=== PATIENT | male | born 1950 | race Caucasian/White ===

== ENCOUNTER → 2021-12-28 | Outpatient (CLI) | payer OTHER | END | disposition home or self-care (01) | LOC: SHCH 07:37 | PROVIDERS: ATTEND Internal Medicine Cardiovascular Disease | DX: E27.1 Primary adrenocortical insufficiency (principal) | CPT/HCPCS: 93978 ==

== ENCOUNTER 2023-07-22 14:05 | Observation (INO) | payer OTHER ==
[~2023-07-22] VITALS: Ht 177.8 cm; Wt 76.7 kg
[2023-07-22 15:23] LABS: BASOPHILS # (AUTO) 0.04 K/uL (0.00-0.20); BASOPHILS % (AUTO) 0.6 % (0.0-5.0); EOSINOPHILS # (AUTO) 0.02 K/uL (0.00-0.70); EOSINOPHILS % (AUTO) 0.3 % (0.0-8.0); HEMATOCRIT 41.1 % (42-54); IMMATURE GRANULOCYTE ABSOLUTE 0.02 K/uL (0-1); LYMPHOCYTES # (AUTO) 1.3 K/uL (1.0-4.8); LYMPHOCYTES % (AUTO) 19.7 % (21.0-51.0); MEAN CORPUSCULAR HEMOGLOBIN 29.7 pg (27.0-33.0); MEAN CORPUSCULAR HGB CONC 33.8 g/dL (32.0-36.0); MEAN CORPUSCULAR VOLUME 87.8 fL (79-99); MONOCYTES # (AUTO) 0.9 K/uL (0.1-1.0); MONOCYTES % (AUTO) 13.8 % (3.0-13.0); NEUTROPHILS # (AUTO) 4.4 K/uL (1.8-7.7); NEUTROPHILS % (AUTO) 65.3 % (40.0-77.0); PLATELET COUNT (AUTO) 137 K/uL (130-400); RED BLOOD CELL COUNT(AUTO) 4.68 MIL/uL (4.50-6.20); WHITE BLOOD COUNT (AUTO) 6.8 K/uL (4.8-10.8)
[2023-07-22 15:33] LABS: CREATININE 1.1 mg/dL (0.5-1.5)
[2023-07-22 15:38] LABS: ALBUMIN 3.5 g/dL (3.5-5.0); BILIRUBIN,TOTAL 0.8 mg/dL (0.2-1.0); TOTAL PROTEIN, SERUM 6.5 g/dL (6.0-8.3)
[2023-07-22 16:00] LABS: SARS-CoV-2, RNA, NAAT POSITIVE SARS CoV-2 (NEGATIVE)
[2023-07-22 17:25] LABS: ADD UA MICROSCOPIC NO; APPEARANCE,URINE CLEAR (CLEAR); BILIRUBIN,URINE NEGATIVE (NEGATIVE); COLOR,URINE LIGHT-YELLOW (YELLOW); GLUCOSE, URINE (UA) NEGATIVE (NEGATIVE); KETONES,URINE NEGATIVE (NEGATIVE); LEUKOCYTE ESTERASE ,URINE NEGATIVE Leu/uL (NEGATIVE); NITRATE,URINE NEGATIVE (NEGATIVE); OCCULT BLOOD,URINE NEGATIVE (NEGATIVE); PROTEIN,URINE NEGATIVE (NEGATIVE); UROBILINOGEN,URINE 0.2 mg/dL (0.2-1.0)
[2023-07-22] MEDS ORDERED: HYDROCORTISONE SOD SUCCINATE 100 MG/2 ML VIAL IV SCH (19:30)
[2023-07-22] MEDS ORDERED: ONDANSETRON 4MG INJ IVP PRN (21:00)
[2023-07-22] MEDS ORDERED: TEMAZEPAM 15 MG CAPSULE PO PRN (21:00)
[2023-07-22] MEDS ORDERED: ACETAMINOPHEN 325 MG TAB PO PRN (21:00)
[2023-07-22] MEDS ORDERED: ACETAMINOPHEN 650 MG SUPPOSITORY RC PRN (21:00)
[2023-07-22] MEDS ORDERED: LACTULOSE 20 GM/30 ML UDCUP PO PRN (21:00)
[2023-07-22] MEDS: INSULIN HUMULIN R 100 UNIT/ML 3ML SQ SCH (21:00)
[2023-07-22] MEDS ORDERED: CLONIDINE HCL 0.1 MG TABLET PO PRN (21:00)
[2023-07-22] MEDS ORDERED: DOCUSATE SODIUM 100 MG CAP PO PRN (21:00)
[2023-07-22] MEDS ORDERED: LABETALOL 20MG SYG IV PRN (21:00)
[2023-07-22] MEDS ORDERED: HYDRALAZINE 20MG/ML VIAL IV PRN (21:00)
[2023-07-22 23:55] LABS: ABG BASE EXCESS -1.5 mmol/L (-2.0-3.0); ABG HCO3 22.2 mmol/L (21.0-28.0); ABG OXYGEN SATURATION 95.2 % (95.0-99.0); ABG PCO2 35 mmHg (35-48); ABG PH 7.424 (7.35-7.450); CARBON MONOXIDE 0.6; DEVICE COMMENT LR; HHb 4.8; PO2, ARTERIAL BG 75.5 mmHg (83.0-108.0); VENT MODE, BG RA (ROOM AIR)
[2023-07-23] VITALS (11 sets, daily range): BP systolic 103–156; BP diastolic 56–95; PULSE 59–102; RESP 18–20; O2SAT 95–98
[2023-07-23] MEDS ORDERED: HYDR5TAB14 PO (04:57)
[2023-07-23] MEDS ORDERED: UBID1CAP56 PO (04:57)
[2023-07-23] MEDS ORDERED: ATOR40TA69 PO (04:57)
[2023-07-23] MEDS ORDERED: HYDR20TA24 PO (04:57)
[2023-07-23] MEDS ORDERED: ASCO500T19 PO (05:16)
[2023-07-23] MEDS ORDERED: AEC81 PO (05:16)
[2023-07-23] MEDS ORDERED: LEVO75CA5 PO (05:16)
[2023-07-23] MEDS ORDERED: FLUD0.1T2 PO (05:16)
[2023-07-23] MEDS ORDERED: BENZ-226 PO (05:16)
[2023-07-23 05:37] LABS: BASOPHILS # (AUTO) 0.01 K/uL (0.00-0.20); BASOPHILS % (AUTO) 0.2 % (0.0-5.0); HEMATOCRIT 42.7 % (42-54); IMMATURE GRANULOCYTE ABSOLUTE 0.02 K/uL (0-1); LYMPHOCYTES # (AUTO) 0.8 K/uL (1.0-4.8); LYMPHOCYTES % (AUTO) 13.1 % (21.0-51.0); MEAN CORPUSCULAR HEMOGLOBIN 29.8 pg (27.0-33.0); MEAN CORPUSCULAR HGB CONC 34.2 g/dL (32.0-36.0); MEAN CORPUSCULAR VOLUME 87.1 fL (79-99); MONOCYTES # (AUTO) 0.5 K/uL (0.1-1.0); MONOCYTES % (AUTO) 7.4 % (3.0-13.0); NEUTROPHILS # (AUTO) 4.9 K/uL (1.8-7.7); PLATELET COUNT (AUTO) 147 K/uL (130-400); RED CELL DISTRIBUTION WIDTH 13.1 % (11.0-15.5); WHITE BLOOD COUNT (AUTO) 6.3 K/uL (4.8-10.8)
[2023-07-23 05:57] LABS: PHOSPHORUS 4.9 mg/dL (2.5-4.9); POTASSIUM 4.6 mmol/L (3.5-5.1)
[2023-07-23] MEDS: INSULIN HUMULIN R 100 UNIT/ML 3ML SQ SCH ×4 (06:52→20:25)
[2023-07-23] MEDS ORDERED: GLUCAGON 1MG KIT 1 MG ML IM PRN (08:00)
[2023-07-23] MEDS ORDERED: POTASSIUM CHLORIDE 10% ELIXIR 20 MEQ/15 ML UDCUP PO PRN (08:00)
[2023-07-23] MEDS ORDERED: DEXTROSE 50%-WATER 50 ML DISP.SYRIN IV PRN (08:00)
[2023-07-23] MEDS ORDERED: MAGNESIUM 2GM PREMIX 50ML 50 ML IV PRN (08:00)
[2023-07-23] MEDS ORDERED: BENZONATATE 100 MG CAPSULE PO PRN (08:00)
[2023-07-23] MEDS ORDERED: POTASSIUM CHLORIDE 20MEQ/100ML 100 ML IV PRN (08:00)
[2023-07-23] MEDS ORDERED: KCL 20 MEQ ERTAB PO PRN (08:00)
[2023-07-23] MEDS ORDERED: [UNRECOGNIZED DRUG - OTHER] PO SCH (09:00)
[2023-07-23] MEDS ORDERED: HYDROCORTISONE 20 MG TABLET PO SCH (09:00)
[2023-07-23] MEDS ORDERED: ASCORBIC ACID PO SCH (09:00)
[2023-07-23] MEDS ORDERED: UBIDECARENONE PO SCH (09:00)
[2023-07-23] MEDS ORDERED: VIT E ACETATE PO SCH (09:00)
[2023-07-23] MEDS ORDERED: FLUDROCORTISONE ACETATE 0.1 MG TABLET PO SCH (09:00)
[2023-07-23] MEDS ORDERED: ASCORBATE SODIUM PO SCH (09:00)
[2023-07-23] MEDS ORDERED: [UNRECOGNIZED DRUG - OTHER] PO SCH (09:00)
[2023-07-23] MEDS: ASPIRIN 81 MG EC TAB PO SCH (09:29)
[2023-07-23] MEDS: CALCIUM CARB 500MG CHEW TAB PO SCH (09:29)
[2023-07-23] MEDS ORDERED: HYDROCORTISONE SOD SUCCINATE 100 MG/2 ML VIAL IM SCH (12:00)
[2023-07-23] MEDS: HYDROCORTISONE SOD SUCCINATE 100 MG/2 ML VIAL IVP SCH ×2 (18:48→23:56)
[2023-07-23] MEDS ORDERED: PHARMACY COMMUNICATION MISC SCH (19:30)
[2023-07-23] MEDS: ATORVASTATIN 40 MG TABLET PO SCH ×3 (20:23→21:56)
[2023-07-23] MEDS: PAXLOVID PO SCH (20:24)
[2023-07-24] VITALS: BP 138/87; PULSE 101; RESP 20
[2023-07-24 03:36] VITALS: BP 105/67; PULSE 68; RESP 18
[2023-07-24 04:37] LABS: CREATININE 0.9 mg/dL (0.5-1.5); POTASSIUM 4.5 mmol/L (3.5-5.1)
[2023-07-24] MEDS: HYDROCORTISONE SOD SUCCINATE 100 MG/2 ML VIAL IVP SCH ×2 (05:15→11:30)
[2023-07-24] MEDS: INSULIN HUMULIN R 100 UNIT/ML 3ML SQ SCH ×2 (06:01→11:10)
[2023-07-24] MEDS ORDERED: LEVOTHYROXINE 75 MCG TABLET PO SCH (06:30)
[2023-07-24] MEDS ORDERED: NON-FORMULARY MEDICATION 1 EACH (Levothyroxine Sodium (Levothyroxine) 75 MCG) PO SCH (07:30)
[2023-07-24 08:00] VITALS: O2SAT 96
[2023-07-24 08:16] VITALS: BP 107/68; PULSE 60; RESP 20
[2023-07-24] MEDS: ASPIRIN 81 MG EC TAB PO SCH (08:22)
[2023-07-24] MEDS: CALCIUM CARB 500MG CHEW TAB PO SCH (08:23)
[2023-07-24] MEDS: PAXLOVID PO SCH (08:30)
[2023-07-24] MEDS ORDERED: HYDROCORTISONE 20 MG TABLET PO SCH (09:00)
[2023-07-24] MEDS ORDERED: PANTOPRAZOLE 40 MG TAB DR PO SCH (09:00)
[2023-07-24] MEDS ORDERED: ENOXAPARIN SODIUM 40 MG/0.4 ML SYRINGE SQ SCH (09:00)
[2023-07-24 12:11] VITALS: BP 123/69; PULSE 61; RESP 20
== END 2023-07-24 13:04 | disposition home or self-care (01) ==
LOC: EDH 14:05 → EDHIP 20:37 → 2AH 07-23 04:20
PROVIDERS: ADMIT Internal Medicine; ATTEND Internal Medicine
DX: U07.1 COVID-19 (principal); R55 Syncope and collapse; E27.40 Unspecified adrenocortical insufficiency; E03.9 Hypothyroidism, unspecified; E78.5 Hyperlipidemia, unspecified; E87.6 Hypokalemia; E27.1 Primary adrenocortical insufficiency; E78.00 Pure hypercholesterolemia, unspecified; E83.51 Hypocalcemia; E87.1 Hypo-osmolality and hyponatremia; I51.7 Cardiomegaly; R09.02 Hypoxemia; Z91.199 Patient's noncompliance with other medical treatment and regimen due to unspecified reason; Z95.0 Presence of cardiac pacemaker; Z79.899 Other long term (current) drug therapy; Z98.890 Other specified postprocedural states
CPT/HCPCS: 82947; 84132; 84295; 85018; 82948 ×6; 82435; 96374; 99285; 84484; 80053; 82803; 85025 ×2; 83605 ×2; 81003; 36415 ×3; 87635; 71045; 70450; 93005; 96376 ×2; 96372 ×2; 83735; 84100; 80048 ×2; 93880; 97161; 97116; 97530 ×2; 36600; 82533; G0378 ×39; C9803; J1720 ×6; J1650

== ENCOUNTER 2024-10-04 19:11 | Emergency (ER) | payer OTHER ==
[~2024-10-04] VITALS: Ht 177.8 cm; Wt 78.9 kg
[~2024-10-04 19:11] MED LIST: AEC81 PO; ASCO500T19 PO; ATOR40TA69 PO; BENZ-226 PO; FLUD0.1T2 PO; HYDR20TA24 PO; HYDR5TAB14 PO; LEVO75CA5 PO; UBID1CAP56 PO
--- NOTE | 2024-10-04 19:21 | ERN ---
ED Note History of Present Illness Stated Complaint: FALL, COUGH Chief Complaint: Mechanical Fall Time Seen by MD: 19:16 Dictation: PATIENT IS A 74-YEAR-OLD MALE COMING IN TODAY WITH COMPLAINTS OF HAVING A NEAR SYNCOPAL EPISODE AND TAKEN HIMSELF DOWN TO THE FLOOR. 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 HE SAID HE LAID DOWN ON THE GROUND AND CALLED EMS. HE DENIES ANY FALLS, NO LOC NO HEAD INJURY NO BLOOD THINNERS. HEART RATE IS CONTROLLED AT . PATIENT IS NOTED TO BE 101 ON EXAM. Allergies: Coded Allergies: No Known Allergies (Unverified Allergy, Unknown, 07/22/23) Home Meds Reported Medications Levothyroxine Sodium (Levothyroxine) 75 Mcg Capsule, 75 MCG PO ACBKFST, CAP 07/23/23 Ascorbic Acid/Ascorbate Sodium (Vitamin C 500 mg Tablet Chew) 500 Mg Tab.chew, 500 MG PO DAILY, TAB.CHEW 07/23/23 Aspirin (ASPIRIN 81 MG ECTAB) 81 Mg Ectab, 81 MG PO DAILY, TAB.EC 07/23/23 Fludrocortisone Acetate (Fludrocortisone Acetate) 0.1 Mg Tablet, 0.1 MG PO QODAY, TAB 07/23/23 Benzonatate (Benzonatate) 100 Mg Capsule, 100 MG PO TIDP PRN for COUGH/COLD SYMPTOMS, CAP 07/23/23 Atorvastatin Calcium (LIPITOR) 80 Mg Tablet, 80 MG PO HS, TAB 07/23/23 Hydrocortisone (Hydrocortisone) 20 Mg Tablet, 20 MG PO DAILY, TAB 07/23/23 Hydrocortisone (Hydrocortisone) 5 Mg Tablet, 5 MG PO DAILYDINNER, TAB 07/23/23 Ubidecarenone/Vit E Acetate (Co Q-10 100 mg Softgel) 100 Mg-5 Unit Capsule, 1 EACH PO DAILY, CAP 07/23/23 Past Medical History Past Medical History: High Cholesterol, Heart Disease, Other (LUKE'S DISEASE) Surgical History: Other Surgical History Other: ABD HERNIA, BOWEL RESECTION Social History: Lives with family RN Note Reviewed/Agreed w/PFSH: Yes Review of System Dictation CONSTITUTIONAL: NEGATIVE EXCEPT FOR HPI GENERALIZED WEAKNESS/FEVER HEAD/FACE: NEGATIVE EXCEPT FOR HPI EENT: NEGATIVE EXCEPT FOR HPI RESPIRATORY: NEGATIVE EXCEPT FOR HPI COUGH GASTROINTESTINAL/ABDOMINAL: NEGATIVE EXCEPT FOR HPI GENITOURINARY: NEGATIVE EXCEPT FOR HPI MUSCULOSKELETAL: NEGATIVE EXCEPT FOR HPI INTEGUMENTARY: NEGATIVE EXCEPT FOR HPI NEUROLOGICAL/PSYCH: NEGATIVE EXCEPT FOR HPI HEMATOLOGIC/LYMPHATIC: NEGATIVE EXCEPT FOR HPI ALL SYSTEMS NEGATIVE, EXCEPT NOTED ABOVE. 13 POINT REVIEW OF SYSTEMS ASSESSED AND ALL NEGATIVE EXCEPT FOR ABOVE. Initial Vital Sign VS Vital Signs Date Time Temp Pulse Resp B/P (MAP) Pulse Ox O2 Delivery O2 Flow Rate FiO2 10/04/24 19:12 100.9 73 16 110/66 99 Room Air 0 Physical Exam Dictation VITAL SIGNS REVIEWED SEE YOUR OVER 10 PAIN GENERAL APPEARANCE: ALERT, ORIENTED X 3, NO ACUTE DISTRESS, WELL DEVELOPED, NOURISHED. HEAD AND FACE: NON-TRAUMATIC. EYES: PERRL, PINK CONJUNCTIVAS, EYELID NO TRAUMA, ANTERIOR CHAMBER WITH ARCUS SENILIS. EARS: PINNAS INTACT AND NO SIGNS OF TRAUMA OR ERYTHEMA EAR CANALS CLEAR AND NO DISCHARGE TM NO ERYTHEMA NOSE: NO DISCHARGE, NO BLEEDING. OROPHARYNX: MOUTH NORMAL, TONGUE PINK, PHARYNX CLEAR,NO ERYTHEMA, TONSILS NO EXUDATES, NO ABSCESSES NOTED, MUCOUS MEMBRANE MOIST NECK: SUPPLE, NON-TENDER, NO THYROMEGALY, NO MASSES, NO JVD, NO BRUITS BREAST:DEFERRED CHEST:NO TENDERNESS, NO CREPITUS, NO PARADOXICAL MOVEMENT, NO RETRACTIONS LUNGS:CLEAR, WELL-VENTILATED, SYMMETRIC, NO RALES, NO WHEEZING, NO RHONCHI, NO STRIDOR, GOOD BREATH SOUNDS BILATERALLY HEART: REGULAR RATE, REGULAR RHYTHM, NO MURMUR, NO GALLOPS VASCULAR: NO PERIPHERAL EDEMA, ABDOMEN: SOFT, POSITIVE BOWEL SOUNDS, NONDISTENDED, NO GUARDING, NONTENDER, NO REBOUND, NO MASSES NO HEPATOMEGALY, NO SPLENOMEGALY, NO BEATTY'S SIGN, NO HERNIAS. RECTAL: DEFERRED GENITAL: DEFERRED NEUROLOGICAL: NORMAL SPEECH, MOTOR FUNCTION INTACT, SENSORY FUNCTION INTACT MUSCULOSKELETAL: NECK NONTENDER, FULL RANGE OF MOTION, BACK NONTENDER, FULL RANGE OF MOTION, EXTREMITIES: NONTENDER, FULL RANGE OF MOTION SKIN: COLOR PINK, DRY, NO TURGOR, NO RASH, NO LACERATIONS, NO ABRASIONS, NO CONTUSIONS. LYMPHATIC: DEFERRED Results (Laboratory/Radiology) Laboratory/Radiology Laboratory Tests Test 10/04/24 19:27 10/04/24 20:32 White Blood Count 8.2 K/uL (4.8-10.8) Red Blood Count 4.74 MIL/uL (4.50-6.20) Hemoglobin 13.5 g/dL (14.0-18.0) L Hematocrit 40.1 % (42-54) L Mean Corpuscular Volume 84.6 fL (79-99) Mean Corpuscular Hemoglobin 28.5 pg (27.0-33.0) Mean Corpuscular Hemoglobin Concent 33.7 g/dL (32.0-36.0) Red Cell Distribution Width 14.8 % (11.0-15.5) Platelet Count 129 K/uL (130-400) L Mean Platelet Volume 9.4 fL (7.5-10.5) Immature Granulocyte % (Auto) 0.2 % (0-1) Neutrophils (%) (Auto) 65.4 % (40.0-77.0) Lymphocytes (%) (Auto) 20.6 % (21.0-51.0) L Monocytes (%) (Auto) 11.5 % (3.0-13.0) Eosinophils (%) (Auto) 1.5 % (0.0-8.0) Basophils (%) (Auto) 0.8 % (0.0-5.0) Neutrophils # (Auto) 5.4 K/uL (1.8-7.7) Lymphocytes # (Auto) 1.7 K/uL (1.0-4.8) Monocytes # (Auto) 1.0 K/uL (0.1-1.0) Eosinophils # (Auto) 0.12 K/uL (0.00-0.70) Basophils # (Auto) 0.07 K/uL (0.00-0.20) Absolute Immature Granulocyte (auto 0.02 K/uL (0-1) Nucleated Red Blood Cells 0.0 % (0.0-0.19) Sodium Level 131 mmol/L (136-145) L Potassium Level 4.6 mmol/L (3.5-5.1) Chloride Level 95 mmol/L (101-111) L Carbon Dioxide Level 34 mmol/L (21-32) H Blood Urea Nitrogen 14 mg/dL (7-18) Creatinine 1.0 mg/dL (0.5-1.3) Glomerular Filtration Rate Calc 78 mL/min (>90) Random Glucose 91 mg/dL (70-105) Lactic Acid Level 1.3 mmol/L (0.8-2.5) Total Calcium 8.9 mg/dL (8.5-10.1) SARS-CoV-2 Antigen (Rapid) POSITIVE FOR SARS AG Labs Reviewed?: Yes EKG Comment: EKG SINUS RHYTHM/HEART RATE 65/AXIS NORMAL/RIGHT BUNDLE BRANCH BLOCK ED Course ED Course Orders Procedure Category Date Status Time Covid19 (Sars Antigen LAB 10/04/24 Complete Rapid) 19:17 Cbc With Differential LAB 10/04/24 Complete 19:17 Blood Cult DENNY 10/04/24 In Process 19:17 Urinalysis Profile LAB 10/04/24 Logged 19:17 Lactic Acid LAB 10/04/24 Complete 19:17 Basic Metabolic Panel LAB 10/04/24 Complete 19:17 Acetaminophen 500mg PHA 10/04/24 Complete Tab (Tylenol 500mg T 19:30 Chest 1vw RAD 10/04/24 Resulted 19:17 0.9%Nacl 1000ml (Ns PHA 10/04/24 Complete 1000ml) 19:30 12 Lead Ekg Tracing- EKG 10/04/24 Complete Technical 19:31 Current Medications Medications (Trade) Dose Ordered Sig/Nate Route PRN Reason Start Time Stop Time Status Last Admin Dose Admin Acetaminophen (TYLenol 500MG TAB) 1,000 mg ONCE ONCE PO 10/04/24 19:30 10/04/24 19:31 DC 10/04/24 19:38 Sodium Chloride 1,000 ml @ 0 mls/hr ONCE ONCE IV 10/04/24 19:30 10/04/24 19:31 DC 10/04/24 19:38 Vital Signs Date Time Temp Pulse Resp B/P (MAP) Pulse Ox O2 Delivery O2 Flow Rate FiO2 10/04/24 19:12 100.9 73 16 110/66 99 Room Air 0 2120 PATIENT HAS COVID-19 INFECTION. THE REMAINDER OF HIS EXAM IS COMPLETELY UNREMARKABLE WE WILL BE DISCHARGE PATIENT HOME WITH VALERY TOLD TO SEE HIS DOCTOR. Medical Decision Making MDM MDM: DIFFERENTIAL DIAGNOSIS: /SYNCOPE/ELECTROLYTE IMBALANCE/DEHYDRATION/ARRHYTHMIA/TACHYCARDIC RATIONALE: TESTS CONSIDERED AND ORDERED SECONDARY TO SHARED DECISION MAKING INCLUDE: LABS/EKG PREVIOUS OUTSIDE RECORDS REVIEWED: OLD ER VISITS. RISK OF COMPLICATION AND/OR MORBIDITY OR MORTALITY OF PATIENT MANAGEMENT: NONE MEDICATIONS-PER MEDICATION RECONCILIATION NEED FOR HOSPITALIZATION: PATIENT DOES NOT MEET CRITERIA FOR HOSPITALIZATION. NO NEED FOR EMERGENCY MAJOR/MINOR SURGERY: NO THERE ARE NO SOCIAL CONCERNS WITH THIS PATIENT. PRESCRIPTION DRUG MANAGEMENT PAXLOVID PRESCRIPTIONS WILL INCLUDE SYMPTOMATIC CARE PATIENT'S PRIOR EXTERNAL MEDICAL RECORDS FROM OTHER ER VISITS WERE REVIEWED BY ME INDICATED. PRIOR TESTING AND RESULTS FROM PREVIOUS VISITS WERE REVIEWED. PRIOR TESTS WERE TAKEN INTO ACCOUNT WITH MEDICAL DECISION MAKING AND RESOURCE UTILIZATION, INDEPENDENT HISTORIAN/HISTORIANS WERE USED TO OBTAIN COMPLETE MEDICAL HISTORY. I INDEPENDENTLY INTERPRETED THE TEST THAT WERE PERFORMED, RESULTS WERE REVIEWED BY ME AND CONSIDERED FINDINGS ON RADIOLOGY IF ORDERED. MEDICAL MANAGEMENT AND EXAMINATION INTERPRETATION DISCUSSIONS WERE HAD BY ME WITH OTHER QUALIFIED HEALTHCARE PROFESSIONALS INDICATED FOR THE PATIENT'S CARE. DX & DISP Disposition: Discharge Departure Impression: Primary Impression: COVID-19 virus infection Additional Impression: Near syncope Condition: Stable Scripts Nirmatrelvir/Ritonavir (Paxlovid 300-100 mg Dose Pack) 300 Mg (150 Mg X 2)-100 Mg Tab.ds.pk 1 EACH PO AD for 5 Days, #30 TAB TAKE TABLETS TWICE A DAY DIRECTED UNTIL GONE. Prov: RONI CHRISTIANSON NP 10/04/24 Additional Instructions: FOLLOW-UP WITH PRIMARY CARE PROVIDER IN 1 TO 2 DAYS. TAKE MEDICATIONS DIRECTED HERE IN THE EMERGENCY ROOM. OKAY TO CONTINUE HOME MEDICATIONS UNLESS OTHERWISE DISCUSSED DURING YOUR VISIT IN THE EMERGENCY ROOM TODAY. RETURN TO YOUR NEAREST EMERGENCY ROOM IF SYMPTOMS WORSEN OR IF THERE IS NO IMPROVEMENT. CALL 911 IF YOU NEED IMMEDIATE ASSISTANCE. TAKE TYLENOL OR MOTRIN [id number] NEEDED AND IF NO CONTRAINDICATIONS ARE PRESENT. INCREASE ORAL HYDRATION. A WOUND CULTURE OR URINE CULTURE WAS ORDERED HERE IN THE EMERGENCY ROOM DEPARTMENT PLEASE FOLLOW-UP WITH PRIMARY CARE PROVIDER AND ADVISE THEM TO GET REPEAT PORTS FROM OUR FACILITY. IF YOU HAD ANY SHAYLA WRAP/SPLINTS THAT WERE APPLIED HERE, PLEASE DO NOT REMOVE THEM UNTIL YOU SEE YOUR PRIMARY CARE OR SPECIALTY. TAKE PAXLOVID DIRECTED UNTIL GONE. , INCREASE YOUR WATER INTAKE. SEE YOUR PRIMARY CARE DOCTOR FOR FOLLOW UP IN Referrals: BETTY BLACKBURN MD (PCP) Time of Disposition: 21:22 I have reviewed the case, and I agree with, Diagnosis and Plan RONI CHRISTIANSON NP Oct 04, 2024 19:20
[2024-10-04 19:35] LABS: BASOPHILS # (AUTO) 0.07 K/uL (0.00-0.20); BASOPHILS % (AUTO) 0.8 % (0.0-5.0); EOSINOPHILS # (AUTO) 0.12 K/uL (0.00-0.70); EOSINOPHILS % (AUTO) 1.5 % (0.0-8.0); HEMATOCRIT 40.1 % (42-54); IMMATURE GRANULOCYTE ABSOLUTE 0.02 K/uL (0-1); LYMPHOCYTES # (AUTO) 1.7 K/uL (1.0-4.8); LYMPHOCYTES % (AUTO) 20.6 % (21.0-51.0); MEAN CORPUSCULAR HEMOGLOBIN 28.5 pg (27.0-33.0); MEAN CORPUSCULAR HGB CONC 33.7 g/dL (32.0-36.0); MEAN CORPUSCULAR VOLUME 84.6 fL (79-99); MONOCYTES % (AUTO) 11.5 % (3.0-13.0); NEUTROPHILS # (AUTO) 5.4 K/uL (1.8-7.7); NEUTROPHILS % (AUTO) 65.4 % (40.0-77.0); PLATELET COUNT (AUTO) 129 K/uL (130-400); RED BLOOD CELL COUNT(AUTO) 4.74 MIL/uL (4.50-6.20); RED CELL DISTRIBUTION WIDTH 14.8 % (11.0-15.5); WHITE BLOOD COUNT (AUTO) 8.2 K/uL (4.8-10.8)
[2024-10-04] MEDS: acetaMINOPHEN 500 MG TABLET PO ONE (19:38)
[2024-10-04] MEDS: 0.9%NACL 1000ML 1,000 ML IV ONE (19:38)
[2024-10-04 19:53] LABS: POTASSIUM 4.6 mmol/L (3.5-5.1)
--- NOTE | 2024-10-04 20:01 | EKG ---
[facility] Test Date: 2024-10-04 Test Time: 19:53:10 Pat Name: ROSETTA BREWER Department: [facility] Room: Gender: M Wood Coater: [facility] : 1950 Requested By: RONI CHRISTIANSON Order Number: [id number] Reading MD: Kyle Elkins Measurements Intervals Williams Rate: 65 P: 111 IL: 153 QRS: 80 QRSD: 156 T: 48 QT: 425 QTc: 441 Interpretive Statements Sinus rhythm Right bundle branch block Compared to ECG 07/22/2023 14:28:41 No significant changes Electronically Signed On 10-05-2024 06:58:28 RN ACUTE by Kyle Elkins Please click the below link to view image of tracing.
--- NOTE | 2024-10-04 20:33 | HMCIMG ---
CHEST 1VW REASON: SOB/COUGH COMPARISON: 07/22/2023 FINDINGS: Single view of the chest was obtained. Lungs are clear. Heart size is normal. There is no pulmonary vascular congestion. Mediastinum and bony thorax appear unremarkable. 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 IMPRESSION: 1. No acute finding, no change.
[2024-10-04 20:59] VITALS: TEMP 99.2
[2024-10-04 21:23] VITALS: BP 121/71; PULSE 74; RESP 17; TEMP 99; O2SAT 98
[2024-10-04] MEDS ORDERED: NIRM1TAB9 PO (21:23)
== END 2024-10-04 21:38 | disposition home or self-care (01) ==
LOC: EDH 19:11
DX: U07.1 COVID-19 (principal); R55 Syncope and collapse; E78.00 Pure hypercholesterolemia, unspecified; Z79.82 Long term (current) use of aspirin
CPT/HCPCS: 99285; 96360; 71045; 87426; 80048; 85025; 87040 ×2; 83605; 36415; 93005; J7030